=== PATIENT | female | born 1975 | race Caucasian/White ===

== ENCOUNTER 2020-07-03 13:35 | Emergency (ER) | payer SELFPAY ==
--- NOTE | ~2020-07-03 | XR_ITS ---
XR chest 2V DATE: 07/03/2020 14:18 INDICATION: Left-sided chest pain, arm numbness TECHNIQUE: PA and lateral views COMPARISON: None FINDINGS: Normal heart size. No hilar or mediastinal enlargement. Mild to moderate hyperinflation. No pulmonary infiltrate or consolidation, pleural effusion or pulmonary vascular congestion or pneumoth orax. Included skeletal structures are unremarkable. IMPRESSION: Mild to moderate hyperinflation; no active cardiopulmonary disease Reviewed, dictated and finalized at location B. [facility]
[2020-07-03 13:38] VITALS: BP 142/83; PULSE 100; RESP 17; TEMP 36.2; O2SAT 100
--- NOTE | 2020-07-03 13:52 | ECG_ITS ---
Measurements Intervals [place] Rate: 79 P: 54 MD: 117 QRS: 29 QRSD: 86 T: 32 QT: 381 QTc: 437 Interpretive Statements SINUS RHYTHM WITH SHORT MD INTERVAL INCOMPLETE RIGHT BUNDLE BRANCH BLOCK BORDERLINE ST ABNORMALITY- ANTEROLAT/INF LEADS BASELINE ARTIFACT- I, II, III, AVR, AVL, AVF BORDERLINE ECG Electronically Signed On 07-03-2020 14:09:39 SENIOR CENTER DIRECTOR by Mamadou Don D.O.
[2020-07-03 14:06] LABS: Basophils Percent Auto 0.4 % (0.2-1.2); Eosinophils Absolute Auto 0.2 K/mm3 (0-0.3); Eosinophils Percent Auto 1.9 % (0-4.4); Hematocrit 41.2 % (37.0-47.0); Hemoglobin 13.9 g/dL (12.0-15.0); Immature Granulocyte Absolute 0.03 K/mm3 (0.00-0.031); Immature Granulocyte Percent A 0.4 % (0-0.5); Lymphocytes Absolute Auto 2.83 K/mm3 (0.9-3.2); Lymphocytes Percent Auto 33.3 % (18.3-44.2); Mean Corpuscular HGB Conc 33.7 g/dl (32-36); Mean Corpuscular Hemoglobin 31.4 pg (26-34); Mean Platelet Volume 9.7 fl (7.4-10.4); Monocytes Absolute Auto 0.6 K/mm3 (0.1-0.6); Monocytes Percent Auto 6.5 % (2.6-8.5); Neutrophils Absolute Auto 4.9 K/mm3 (1.3-6.7); Neutrophils Percent Auto 57.5 % (45.5-73.1); Platelet Count Result 258 k/mm3 (150-375); Red Blood Count 4.43 M/mm3 (4.2-5.4); Red Cell Distribution Width 12.1 % (11.5-14.5); White Blood Count 8.5 K/mm3 (4.5-10.0)
[2020-07-03 14:16] LABS: Partial Thromboplastin Time 33.3 SECONDS (22.3-36.8); Prothrombin Time 14.1 Seconds (11.1-14.7)
[2020-07-03 14:18] LABS: Anion Gap 11 mmol/L (8-16); Blood Urea Nitrogen 13 mg/dL (7-17); Carbon Dioxide 25 mmol/L (22-30); Chloride 100 mmol/L (98-107); Estimated CRCL calculation 77 ml/min; Estimated Glomerular Filt Rate > 60; Glucose 148 mg/dL (65-105); Potassium 4.1 mmol/L (3.4-5.0); Sodium 136 mmol/L (137-145)
[2020-07-03 14:30] LABS: Troponin I < 0.012 ng/mL (0.000-0.034)
--- NOTE | 2020-07-03 14:31 | ED.CHESTPAIN ---
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 to have the sensation of rapid heart rate patient is on metoprolol with history of SVT followed by primary care for this patient did take her metoprolol shortly after onset of symptoms on arrival notes that she continues to have chest tightness denies recent illness or other complaints does not appear distressed upon arrival denies any pain Related Data Home Medications Medication Instructions Recorded Confirmed aspirin 81 mg PO DAILY 07/03/20 07/03/20 metoprolol succinate PO 07/03/20 07/03/20 pravastatin 20 mg PO DAILY 07/03/20 07/03/20 Allergies Allergy/AdvReac Type Severity Reaction Status Date / Time No Known Allergies Allergy Verified 07/03/20 13:41 Review of Systems Review of Systems: All systems reviewed & are unremarkable except as noted in HPI and below PMFSH Past Medical History Medical History Tachycardia Social History Social History (Updated 07/03/20 @ 14:54 by Jose Garza PA-C) Smoking status: Never smoker Gender identity (if verbalized by the patient): Female Exam Narrative: Exam Narrative: GENERAL: Well-appearing, well-nourished, and in no acute distress. HEAD: Normocephalic, atraumatic. EYES: PERRLA and EOMI. ENT: Nares clear, no rhinorrhea or epistaxis. Mucous membranes moist. CHEST: Clear to auscultation. No respiratory distress. No wheezes rales or rhonchi HEART: Regular rate and rhythm. No murmur heard. Normal peripheral pulses. ABDOMEN: Soft, nontender, nondistended EXTREMITIES: Normal range of motion. No edema. SKIN: Warm, dry, no rash. NEURO: No focal deficits. Alert and oriented x3. Cranial nerves II through XII grossly intact PSYCH: Normal mood and affect. Course Course Emergency Course: Patient in the room no distress aware of case findings treatment plan diagnosis noting that her symptoms have completely resolved feels comfortable to go home and follow with primary care is afebrile nontoxic-appearing no distress ABCs intact vital signs stable Vital Signs Vital signs: Vital Signs Temperature 97.2 F L 07/03/20 13:38 Pulse Rate 100 07/03/20 13:38 Respiratory Rate 17 07/03/20 13:38 Blood Pressure 142/83 H 07/03/20 13:38 Pulse Oximetry 100 07/03/20 13:38 Temperature 97.2 F L 07/03/20 13:38 Pulse Rate 100 07/03/20 13:38 Respiratory Rate 17 07/03/20 13:38 Blood Pressure 142/83 H 07/03/20 13:38 Pulse Oximetry 100 07/03/20 13:38 MDM - Chest Pain MDM Narrative Medical decision making narrative: Patients EKGs and labs are without significant high risk changes. Cardiac risk factors were reviewed. Patient is felt likely to be low risk for ACS and reasonable for further risk stratification testing as an outpatient. Pain was not sudden or maximal in onset without tearing or ripping. quality. No other signs or symptoms to suggest aortic dissection. A low-risk Wells criteria is noted. PE is felt to be unlikely. No pneumonia or URI symptoms were seen on evaluation today. Patient is felt to b reasonable for continued evaluation as an outpatient. Lab Data Result diagrams: 07/03/20 13:54 07/03/20 13:54 Labs: Lab Results 07/03/20 07/03/20 07/03/20 Range/Units 13:54 13:54 13:54 WBC 8.5 (4.5-10.0) K/mm3 RBC 4.43 (4.2-5.4) M/mm3 Hgb 13.9 (12.0-15.0) g/dL Hct 41.2 (37.0-47.0) % MCV 93.0 (80-100) fl MCH 31.4 (26-34) pg MCHC 33.7 (32-36) g/dl RDW 12.1 (11.5-14.5) % Plt Count 258 (150-375) k/mm3 MPV 9.7 (7.4-10.4) fl
[2020-07-03 14:42] LABS: D Dimer 0.27 ug/mL (<0.48)
[2020-07-03 14:43] VITALS: PULSE 78
[2020-07-03 14:44] VITALS: BP 135/87; PULSE 78; RESP 16; O2SAT 98
== END 2020-07-03 14:55 | disposition home or self-care (01) ==
PROVIDERS: Emergency Medicine Emergency Medical Services; Emergency Provider Emergency Medicine; PCP Internal Medicine
DX: R07.9 Chest pain, unspecified (principal); I45.10 Unspecified right bundle-branch block
CPT/HCPCS: 36415; 71046; 80048; 84484; 85025; 85380; 85610; 85730; 93005; 99284